=== PATIENT | male | born 1965 | race American Indian/Alaskan Native ===

== ENCOUNTER 2021-12-13 14:41 | Emergency (ER) | payer MEDICARE ==
[2021-12-13 14:53] VITALS: BP 151/101
--- NOTE | 2021-12-13 16:12 | XRay Report ---
CHEST 2 VIEWS INDICATION / CLINICAL INFORMATION: Chest Pain. COMPARISON: None available. FINDINGS: SUPPORT DEVICES: None. HEART / MEDIASTINUM: No significant abnormality. LUNGS / PLEURA: No significant pulmonary or pleural abnormality. No pneumothorax. ADDITIONAL FINDINGS: No significant additional findings. IMPRESSION: 1. No acute findings. Signer Name: Booker Underwood MD Signed: 12/13/2021 4:08 PM Workstation Name: [email or web address] [id number]
--- NOTE | 2021-12-13 21:24 | Emergency Department Report ---
ED Chest Pain HPI - General Chief Complaint: Chest Pain Stated Complaint: CHEST PAIN/DIZZY/HEADACHE Time Seen by Provider: 12/13/21 21:05 Source: patient Mode of arrival: Ambulatory Limitations: No Limitations - History of Present Illness Initial Comments: Patient is a 56-year-old male with history of hypertension, hyperlipidemia presenting with complaint of left-sided chest pain upon awakening this morning. He describes the pain as a squeezing/tight sensation without radiation. There are no modifying factors. Symptoms have been pretty much constant throughout the day. He also reports dizziness with spinning sensation particularly when lying down. He denies nausea or vomiting. Denies history of cardiac issues. MD Complaint: chest pain -: This morning Onset: during rest Pain Location: left chest Pain Radiation: none Severity: moderate Severity scale (0 -10): 5 Quality: tightness Consistency: constant Improves With: nothing Worsens With: nothing re: denies: nausea, vomting, diaphoresis, dyspnea, sense of impending doom Treatments Prior to Arrival: none Aspirin use within the Past 7 Days: (0) No - Related Data Allergies Allergy/AdvReac Type Severity Reaction Status Date / Time ibuprofen AdvReac Nausea Verified 12/13/21 14:49 Heart Score - HEART Score History: Slightly suspicious EKG: Normal Age: 45-65 Risk factors: 1-2 risk factors Troponin: < normal limit HEART Score: 2 - EKG Read Time Time EKG Completed: 14:54 EKG Read Time: 14:56 ED Review of Systems ROS: Stated complaint: CHEST PAIN/DIZZY/HEADACHE Other details as noted in HPI Constitutional: denies: chills, fever Respiratory: denies: cough, shortness of breath, wheezing Cardiovascular: as per HPI, chest pain Endocrine: no symptoms reported Gastrointestinal: denies: abdominal pain, nausea, diarrhea Musculoskeletal: denies: back pain, joint swelling, arthralgia Skin: denies: rash, lesions Neurological: headache, vertigo Psychiatric: denies: anxiety, depression Hematological/Lymphatic: denies: easy bleeding, easy bruising ED Past Medical Hx - Past Medical History Hx Hypertension: Yes Hx CVA: No Hx Heart Attack/AMI: No Hx Congestive Heart Failure: No ED Physical Exam - General Limitations: No Limitations General appearance: alert, in no apparent distress, obese - Head Head exam: Present: atraumatic, normocephalic - Respiratory Respiratory exam: Present: normal lung sounds bilaterally. Absent: respiratory distress - Cardiovascular Cardiovascular Exam: Present: regular rate, normal rhythm. Absent: systolic murmur, diastolic murmur, rubs, gallop - GI/Abdominal GI/Abdominal exam: Present: soft, normal bowel sounds. Absent: distended, tenderness - Rectal Rectal exam: Present: deferred - Neurological Exam Neurological exam: Present: alert, oriented X3 - Psychiatric Psychiatric exam: Present: normal affect, normal mood - Skin Skin exam: Present: warm, dry, intact, normal color. Absent: rash ED Course Vital Signs 12/13/21 14:52 Temperature 98.7 F Pulse Rate 89 Respiratory 20 Rate Blood Pressure 151/101 [Right] O2 Sat by Pulse 97 Oximetry ED Medical Decision Making - Lab Data Result diagrams: 12/13/21 21:24 12/13/21 21:24 - EKG Data -: EKG Interpreted by Me (Normal sinus rhythm, ventricular rate 78, normal axis intervals) - Radiology Data Radiology results: report reviewed (No acute cardiopulmonary findings) - Medical Decision Making Work-up including EKG, CBC, CMP and chest x-ray are unremarkable. Heart score i s 2. Very low suspicion for ACS at this time. On reassessment patient resting comfortably in bed. He is stable for discharge home with PCP follow-up in 1 to 2 weeks. Critical care attestation.: If time is entered above; I have spent that time in minutes in the direct care of this critically ill patient, excluding procedure time. ED Disposition Clinical Impression: Left-sided chest pain, Vertigo, benign positional Disposition: 01 HOME / SELF CARE / HOMELESS Is pt being admited?: No Does the pt Need Aspirin: No Condition: Stable Instructions: Nonspecific Chest Pain, Adult, Vertigo, [id number] Referrals: [facility] MD JOON [Primary Care Provider] - 3-5 Days Time of Disposition: 23:24 Print Language: YI
[2021-12-13 21:54] LABS: Hematocrit 44.8 % (35.5-45.6); Hemoglobin 14.3 gm/dl (11.8-15.2); Mean Corpuscular HGB Conc 32 % (32-34); Mean Corpuscular Volume 84 fl (84-94); Platelet Count 254 K/mm3 (140-440); Red Blood Count 5.35 M/mm3 (3.65-5.03); Red Cell Distribution Width 14.4 % (13.2-15.2)
[2021-12-13 21:58] LABS: Alanine Aminotransferase 17 units/L (7-56); Albumin 4.5 g/dL (3.9-5); BUN/Creatinine Ratio 11; Blood Urea Nitrogen 11 mg/dL (9-20); Calcium 9.1 mg/dL (8.4-10.2); Hemolysis Index 7
[2021-12-13 22:00] LABS: Bilirubin,Urine NEG (Negative); Blood,Urine SM (Negative); Color,Urine Yellow (Yellow); Mucus,Urine FEW /HPF; Protein,Urine <15 mg/dL mg/dL (Negative); Urobilinogen,Urine < 2.0 mg/dL (<2.0)
[2021-12-13] MEDS ORDERED: MECLIZINE 25 MG TAB PO ONE ×2 (23:30)
[2021-12-14 00:36] LABS: Basophils % (Manual) 0 % (0.0-1.8); Eosinophils % (Manual) 0 % (0.0-4.3); Total Cells Counted 100
[2021-12-14 00:37] LABS: Platelet Estimate Consistent w Auto; RBC Morphology Normal
--- NOTE | 2021-12-14 20:28 | Electrocardiograph Report ---
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
== END 2021-12-13 23:34 | disposition home or self-care (01) ==
LOC: ED 14:41
DX: R07.89 Other chest pain (principal); R42 Dizziness and giddiness; I10 Essential (primary) hypertension
CPT/HCPCS: 36415; 71046; 80053; 81001; 84484; 85007; 85025; 93005; 99284

== ENCOUNTER 2022-04-10 03:58 | Emergency (ER) | payer MEDICARE ==
--- NOTE | 2022-04-10 04:49 | XRay Report ---
XR chest 1V ap INDICATION / CLINICAL INFORMATION: CHEST PAIN. COMPARISON: 12/13/2021 FINDINGS: SUPPORT DEVICES: None. HEART /PULMONARY VASCULATURE: No significant abnormality. LUNGS / PLEURA: No significant pulmonary or pleural abnormality. No pneumothorax. ADDITIONAL FINDINGS: No significant additional findings. IMPRESSION: 1. No acute findings. Signer Name: Elijah Lopez MD Signed: 04/10/2022 4:45 AM Workstation Name: [id number]
[2022-04-10 11:09] LABS: Hematocrit 41.5 % (35.5-45.6); Hemoglobin 13.9 gm/dl (11.8-15.2); Mean Corpuscular HGB Conc 34 % (32-34); Mean Corpuscular Volume 83 fl (84-94); Platelet Count 239 K/mm3 (140-440); Red Blood Count 5.02 M/mm3 (3.65-5.03); Red Cell Distribution Width 14.6 % (13.2-15.2)
[2022-04-10 11:21] LABS: Alanine Aminotransferase 14 units/L (7-56); Albumin 4.5 g/dL (3.9-5); BUN/Creatinine Ratio 11; Blood Urea Nitrogen 11 mg/dL (9-20); Calcium 9.2 mg/dL (8.4-10.2); Hemolysis Index 8
[2022-04-10] MEDS ORDERED: KETOROLAC 10 MG TAB PO ONE (11:25)
[2022-04-10] MEDS ORDERED: ACETAMINOPHEN W/CODEINE 300-30 MG TAB PO ONE (11:25)
[2022-04-10] MEDS ORDERED: CYCLOBENZAPRINE 10 MG TAB PO ONE (11:25)
--- NOTE | 2022-04-10 11:28 | Emergency Department Report ---
ED Chest Pain HPI - General Chief Complaint: Chest Pain Stated Complaint: CHEST PAINS Time Seen by Provider: 04/10/22 09:45 Source: patient Mode of arrival: Ambulatory Limitations: No Limitations - History of Present Illness Initial Comments: 57 yo black male with a pmh of HTN, HLD, and asthma presents to ed for evaluation of chest pain and bilateral shoulder and back pain. He states that he has had bilateral shoulder and back pain for the past 2 days that is worse with movement and the chest pain started this am. He states that pain is 10/10 and as sociated with some sob and nausea. He denies dizziness, vomiting, fever, and diaphoresis. MD Complaint: chest pain -: Gradual, This morning Pain Location: left chest Severity scale (0 -10): 3 Quality: tightness Consistency: constant Worsens With: palpation re: nausea, dyspnea. denies: vomting, diaphoresis, sense of impending doom Other Symptoms: denies: cough, fever, syncope, rash, acid taste in mouth, leg swelling, palpitations, burping Treatments Prior to Arrival: none Aspirin use within the Past 7 Days: (0) No - Related Data Previous Rx's Medication Instructions Recorded Last Taken Type Meclizine [Antivert] 25 mg PO TID PRN #10 12/13/21 Unknown Rx Cyclobenzaprine [Flexeril] 10 mg PO TID PRN #30 tab 04/10/22 Unknown Rx Ketorolac [Toradol] 10 mg PO Q6H PRN #12 tab 04/10/22 Unknown Rx Allergies Allergy/AdvReac Type Severity Reaction Status Date / Time ibuprofen AdvReac Nausea Verified 12/13/21 14:49 Heart Score - HEART Score History: Slightly suspicious EKG: Normal Age: 45-65 Risk factors: 1-2 risk factors Troponin: < normal limit HEART Score: 2 - EKG Read Time Time EKG Completed: 04:16 EKG Read Time: 04:30 - Critical Actions Critical Actions: 0-3 pts:0.9-1.7%risk of adverse cardiac event.Candidate for discharge ED Review of Systems ROS: Stated complaint: CHEST PAINS Other details as noted in HPI Comment: All other systems reviewed and negative Constitutional: denies: chills, fever Respiratory: denies: shortness of breath, SOB with exertion, SOB at rest, stridor, wheezing Cardiovascular: chest pain. denies: palpitations, dyspnea on exertion, orthopnea, edema, syncope, paroxysmal nocturnal dyspnea Gastrointestinal: nausea. denies: abdominal pain, vomiting, diarrhea, hematemesis, melena, hematochezia Genitourinary: denies: urgency, dysuria, frequency, discharge Musculoskeletal: back pain Skin: denies: rash, lesions Neurological: denies: headache, weakness ED Past Medical Hx - Past Medical History Hx Hypertension: Yes Hx CVA: No Hx Heart Attack/AMI: No Hx Congestive Heart Failure: No - Social History Smoking Status: Unknown if ever smoked Substance Use Type: None - Medications Home Medications: Home Medications Medication Instructions Recorded Confirmed Last Taken Type Meclizine [Antivert] 25 mg PO TID PRN #10 12/13/21 Unknown Rx Cyclobenzaprine [Flexeril] 10 mg PO TID PRN #30 tab 04/10/22 Unknown Rx Ketorolac [Toradol] 10 mg PO Q6H PRN #12 tab 04/10/22 Unknown Rx ED Physical Exam - General Limitations: No Limitations General appearance: alert, in no apparent distress - Head Head exam: Present: atraumatic, normocephalic - Eye Eye exam: Present: normal appearance, PERRL. Absent: conjunctival injection, periorbital swelling, periorbital tenderness - ENT ENT exam: Present: normal exam - Neck Neck exam: Present: normal inspection, full ROM. Absent: tenderness, lymphadenopathy - Respiratory Respiratory exam: Present: normal lung sounds bilaterally. Absent: respiratory distress, wheezes, rales, rhonchi, stridor, chest wall tenderness - Cardiovascular Cardiovascular Exam: Present: regular rate, normal heart sounds - GI/Abdominal GI/Abdominal exam: Present: soft, normal bowel sounds. Absent: distended, tenderness, guarding, rebound, rigid - Extremities Exam Extremities exam: Present: normal inspection, normal capillary refill. Absent: full ROM, tenderness, pedal edema, joint swelling, calf tenderness - Expanded Upper Extremity Exam Left Shoulder Exam: Present: tenderness. Absent: full ROM, swelling, abrasion, laceration, deformity, crepidus, dislocation, erythema Upper Arm exam: Present: normal inspection Elbow exam: Present: normal inspection Forearm Wrist exam: Present: normal inspection Vascular: Present: normal capillary refill, radial pulse. Absent: vascular compromise, Pallo Right Shoulder Exam: Present: normal inspection, tenderness, tenderness over AC joint. Absent: full ROM, swelling, abrasion, laceration, ecchymosis, deformity, crep idus, dislocation Upper Arm exam: Present: normal inspection Elbow exam: Present: normal inspection Forearm Wrist exam: Present: normal inspection Vascular: Present: normal capillary refill, radial pulse. Absent: vascular compromise, Pallo - Back Exam Back exam: Present: normal inspection. Absent: CVA tenderness (R), CVA tenderness (L), muscle spasm - Neurological Exam Neurological exam: Present: alert, oriented X3 - Psychiatric Psychiatric exam: Present: normal affect, normal mood - Skin Skin exam: Present: warm, dry, intact, normal color ED Course Vital Signs 04/10/22 04/10/22 04:06 14:20 Temperature 98.5 F Pulse Rate 76 88 Respiratory 16 18 Rate Blood Pressure 134/91 Blood Pressure 134/91 125/78 [Right] O2 Sat by Pulse 97 99 Oximetry ALONA score - Alona Score Age > 65: (0) No Aspirin use within the Past 7 Days: (0) No 3 or more CAD Risk Factors: (0) No 2 or more Angina events in past 24 hrs: (1) Yes Known CAD with more than 50% Stenosis: (0) No Elevated Cardiac Markers: (0) No ST Deviation Greater than 0.5mm: (0) No ALONA Score: 1 ED Medical Decision Making - Lab Data Result diagrams: 04/10/22 10:17 04/10/22 10:17 - EKG Data Interpretation: no acute changes - Radiology Data Radiology results: report reviewed, image reviewed interpreted by me: CXR: FINDINGS: SUPPORT DEVICES: None. HEART /PULMONARY VASCULATURE: No significant abnormality. LUNGS / PLEURA: No significant pulmonary or pleural abnormality. No pneumothorax. ADDITIONAL FINDINGS: No significant additional findings. IMPRESSION: 1. No acute findings. - Medical Decision Making 57 yo black male with a pmh of HTN, HLD, and asthma presents to ed for evaluation of chest pain and bilateral shoulder and back pain. He states that he has had bilateral shoulder and back pain for the past 2 days that is worse with movement and the chest pain started this am. He states that pain is 10/10 and associated with some sob and nausea. He denies dizziness, vomiting, fever, and diaphoresis. Physical exam unremarkable. Workup unremarkable. Low suspicion for ACS. Shoulder pain improved after medication. Patient will be discharged home with naproxen and flexeril and advised to follow up with pcp or cardiology if worsening symptoms or return to ED as needed. He verbalized understanding of and agreement with plan of care. Critical care attestation.: If time is entered above; I have spent that time in minutes in the direct care of this critically ill patient, excluding procedure time. ED Disposition Clinical Impression: Chest wall pain Bilateral shoulder pain Qualifiers: Chronicity: acute Qualified Code(s): M25.511 - Pain in right shoulder Disposition: HOME / SELF CARE / HOMELESS Is pt being admited?: No Does the pt Need Aspirin: No Condition: Stable Instructions: Chest Wall Pain, [id number], Nonspecific Chest Pain, Adult, Joint Pain, [id number] Additional Instructions: Take medications as prescribed. Follow-up with your primary care provider if no improvement or worsening symptoms. Return to the emergency department as needed. Prescriptions: Cyclobenzaprine [Flexeril] 10 mg PO TID PRN #30 tab PRN Reason: Muscle Spasm Ketorolac [Toradol] 10 mg PO Q6H PRN #12 tab PRN Reason: Pain Referrals: BEKAH GUZMAN MD [Primary Care Provider] - 3-5 Days Forms: Work/School Release Form(ED) Time of Disposition: 11:28
[2022-04-10 14:21] VITALS: BP 125/78
--- NOTE | 2022-04-11 10:59 | Electrocardiograph Report ---
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
== END 2022-04-10 14:20 | disposition home or self-care (01) ==
LOC: ED 03:58
DX: R07.9 Chest pain, unspecified (principal); M25.511 Pain in right shoulder; M25.512 Pain in left shoulder
CPT/HCPCS: 36415; 71045; 80053; 84484; 85027; 93005; 99283; 99284